=== PATIENT | male | born 1970 | race Caucasian/White ===

== ENCOUNTER 2017-09-12 00:38 | Emergency (ER) | payer MEDICAID ==
[~2017-09-12] VITALS: Ht 188 cm; Wt 167.2 kg
[2017-09-12] MEDS ORDERED: INDOMETHACIN 50 MG CAPSULE ONE (00:54)
[2017-09-12] MEDS ORDERED: INDOMETHACIN 50 MG CAPSULE PO ONE (01:00)
[2017-09-12 01:28] LABS: BASOPHILS # (AUTO) 0.04 x10^3/uL (0-0.1); BASOPHILS % (AUTO) 0 % (0-1); EOSINOPHILS # (AUTO) 0.19 x10^3/uL (0-0.4); EOSINOPHILS % (AUTO) 2 % (1-7); LYMPHOCYTES # (AUTO) 1.66 x10^3/uL (1-3.4); LYMPHOCYTES % (AUTO) 15 % (22-44); MD NO; MEAN CORPUSCULAR HEMOGLOBIN 28.1 pg (27.5-34.5); MEAN CORPUSCULAR HGB CONC 33.3 g/dL (33.2-36.2); MEAN CORPUSCULAR VOLUME 84.5 fL (81-97); MEAN PLATELET VOLUME 7.9 fL (7.4-10.4); MONOCYTES # (AUTO) 0.59 x10^3/uL (0.2-0.8); MONOCYTES % (AUTO) 5 % (2-9); NEUTROPHILS # (AUTO) 8.75 x10^3/uL (1.8-6.8); NEUTROPHILS % (AUTO) 78 % (42-75); PLATELET COUNT 321 x10^3/uL (130-400); RED BLOOD COUNT 5.35 x10^6/uL (4.38-5.82)
[2017-09-12] MEDS ORDERED: HYDROcodone/APAP 5/325 TABLET PO ONE (01:30)
[2017-09-12] MEDS ORDERED: CEFTRIAXONE 1,000 MG ONE (01:57)
[2017-09-12] MEDS ORDERED: CEFTRIAXONE 1,000 MG IM ONE (02:00)
[2017-09-12] MEDS ORDERED: HYDROcodone/APAP 5/325 TABLET ONE (02:04)
[2017-09-12 03:06] VITALS: BP 151/74
== END 2017-09-12 03:07 | disposition home or self-care (01) ==
LOC: ED 01:36
DX: L03.114 Cellulitis of left upper limb (principal); M10.042 Idiopathic gout, left hand; M79.642 Pain in left hand; I10 Essential (primary) hypertension; Z87.891 Personal history of nicotine dependence
CPT/HCPCS: 36415; 73130; 85025; 96372; 99285; J0696

== ENCOUNTER 2020-02-21 23:17 | Emergency (ER) | payer MEDICAID ==
[~2020-02-21] VITALS: Ht 190.5 cm; Wt 181.0 kg
[2020-02-21 23:21] VITALS: BP 109/67
[2020-02-21] MEDS ORDERED: COLCHICINE 0.6 MG CAPSULE ONE (23:51)
[2020-02-22] MEDS ORDERED: COLCHICINE 0.6 MG CAPSULE PO ONE
== END 2020-02-22 00:14 | disposition home or self-care (01) ==
LOC: ED 02-22 00:10
DX: M10.9 Gout, unspecified (principal); Z76.0 Encounter for issue of repeat prescription; M13.0 Polyarthritis, unspecified; I10 Essential (primary) hypertension
CPT/HCPCS: 99283

== ENCOUNTER 2020-05-31 04:48 | Emergency (ER) | payer MEDICAID ==
[~2020-05-31] VITALS: Ht 193 cm; Wt 148.3 kg
[2020-05-31 04:51] VITALS: BP 169/95
--- NOTE | 2020-05-31 04:59 | NUR ---
PT CC OF R HAND PAIN "I HAVE GOUT" FOR 1 WEEK, "GOT BETTER AND NOW ITS WORSE". PT HAS 10/10 PAIN. R HAND SWOLLEN. DENIES TAKING ANY MEDICATIONS FOR GOUT.
[2020-05-31] MEDS ORDERED: PANT40TA6 PO (05:03)
[2020-05-31] MEDS ORDERED: APIX2.5T PO (05:03)
[2020-05-31] MEDS ORDERED: COLCHICINE 0.6 MG CAPSULE ONE (05:07)
[2020-05-31] MEDS ORDERED: HYDROcodone/APAP 5/325 TABLET ONE (05:11)
[2020-05-31] MEDS ORDERED: ONDANSETRON ODT 4 MG PO ONE (05:30)
[2020-05-31] MEDS ORDERED: HYDROcodone/APAP 5/325 TABLET PO ONE (05:30)
[2020-05-31] MEDS ORDERED: COLCHICINE 0.6 MG CAPSULE PO ONE (05:30)
[2020-05-31 05:59] LABS: BASOPHILS % (AUTO) 1 % (0-1); EOSINOPHILS % (AUTO) 2 % (1-7); LYMPHOCYTES % (AUTO) 25 % (22-44); MEAN CORPUSCULAR HEMOGLOBIN 26.9 pg (27.5-34.5); MEAN CORPUSCULAR HGB CONC 33.3 g/dL (33.2-36.2); MEAN PLATELET VOLUME 7.3 fL (7.4-10.4); MONOCYTES % (AUTO) 10 % (2-9); NEUTROPHILS % (AUTO) 63 % (42-75); PLATELET COUNT 302 x10^3/uL (130-400); RED BLOOD COUNT 5.22 x10^6/uL (4.38-5.82)
--- NOTE | 2020-05-31 06:00 | NUR ---
PT RESTING ON GURNEY, EYES SHUT, NO NEEDS AT THIS TIME. CALL LIGHT WITHIN REACH
[2020-05-31 06:12] LABS: ALBUMIN 3.2 g/dL (3.4-5.0); ANION GAP 6 mmol/L (5-15); CALCIUM 8.6 mg/dL (8.5-10.1); CHLORIDE 107 mmol/L (98-107); MD NO
[2020-05-31 06:16] LABS: ALANINE AMINOTRANSFERASE 17 U/L (12-78); ALKALINE PHOSPHATASE 79 U/L (45-117); BILIRUBIN,TOTAL 2.1 mg/dL (0.2-1.0); TOTAL PROTEIN 8.1 g/dL (6.4-8.2)
[2020-05-31] MEDS ORDERED: COLCHICINE 0.6 MG CAPSULE PO SCH (07:00)
== END 2020-05-31 07:09 | disposition home or self-care (01) ==
LOC: ED 06:34
DX: M1A.0410 Idiopathic chronic gout, right hand, without tophus (tophi) (principal); K21.9 Gastro-esophageal reflux disease without esophagitis; I10 Essential (primary) hypertension; E66.01 Morbid (severe) obesity due to excess calories; Z68.39 Body mass index [BMI] 39.0-39.9, adult; Z86.718 Personal history of other venous thrombosis and embolism; Z79.899 Other long term (current) drug therapy
CPT/HCPCS: 36415; 80053; 84550; 85025; 99284